=== PATIENT | male | born 1965 | race Caucasian/White ===

== ENCOUNTER 2018-06-19 21:31 | Emergency (ER) | payer OTHER ==
[~2018-06-19] VITALS: Ht 177.8 cm; Wt 89.4 kg
[2018-06-19] MEDS ORDERED: TAMIFLU 75MG CA75 MG PO (22:34)
== END 2018-06-19 22:46 | disposition home or self-care (01) ==
LOC: ED 21:31
DX: J10.1 Influenza due to other identified influenza virus with other respiratory manifestations (principal)